=== PATIENT | male | born 1965 | race Caucasian/White ===

== ENCOUNTER 2017-05-13 11:50 | Emergency (ER) | payer OTHER ==
[~2017-05-13] VITALS: Ht 175.3 cm; Wt 90.9 kg
[~2017-05-13 11:50] MED LIST: ASPIRIN81 M2 PO; ATORVASTATIN CA80 MG PO; CALCIUM 500 MG1 EAC1 PO; CLOPIDOGREL75 MG PO; DAILY VALUE1 EACH PO; LEXAPRO10 MG PO; LOPRESSOR25 MG PO; METOPROLOL TART25 MG PO; NICOTINE PATCH1 EAC2 TD; NORCO 5/3251 TABLET PO; VASOTEC10 MG PO; ZANTAC150 MG PO
[2017-05-13 13:04] LABS: HEMATOCRIT 43.6 % (38.0-50.0); MCH 28.4 PG (29.0-34.0); MCHC 33.3 G/DL (30.0-36.0); MCV 85.5 FL (86-99); MEAN PLAT.VOLUME 8.4 uM^3 (9.0-12.4); PLATELET COUNT 228 K/uL (156-360); RBC DIS.WIDTH-CV 13.1 % (11.8-14.6); RBC DIS.WIDTH-SD 40.7 % (39-53); WHITE BLOOD COUNT 7.9 K/uL (4.1-10.2)
[2017-05-13 13:16] LABS: CHLORIDE 105 mEq/L (99-109); POTASSIUM 4.1 mEq/L (3.7-5.4); SODIUM 139 mEq/L (136-147)
[2017-05-13 13:17] LABS: GLUCOSE 99 mg/dL (70-99)
[2017-05-13 13:19] LABS: ANION GAP 8 MEQ/L (2-14)
[2017-05-13 13:21] LABS: GFR ESTIMATE (CALCULATED) > 59 mL/min/
[2017-05-13 13:22] LABS: UREA NITROGEN (BUN) 17 mg/dL (9-23)
[2017-05-13 13:31] LABS: TROP-I INTERPRETATION NEGATIVE; TROPONIN-I < 0.01 ng/mL (0.0-0.30)
[2017-05-13 15:44] LABS: TROP-I INTERPRETATION NEGATIVE; TROPONIN-I < 0.01 ng/mL (0.0-0.30)
[2017-05-13 16:53] VITALS: BP 150/89
== END 2017-05-13 16:55 | disposition home or self-care (01) ==
LOC: EME 11:50
PROVIDERS: Emergency Medicine
DX: R07.9 Chest pain, unspecified (principal); K21.0 Gastro-esophageal reflux disease with esophagitis; I10 Essential (primary) hypertension; I25.2 Old myocardial infarction; Z95.5 Presence of coronary angioplasty implant and graft; Z87.891 Personal history of nicotine dependence
CPT/HCPCS: 71020; 80048; 84484; 85027; 93005; 99281; 99285